=== PATIENT | male | born 1950 | race Caucasian/White ===

== ENCOUNTER 2018-08-15 11:37 | Emergency (ER) | payer MEDICARE, MEDICAID ==
[~2018-08-15] VITALS: Ht 182.9 cm; Wt 65.9 kg
[~2018-08-15 11:37] MED LIST: CLOZ200T12 PO; FOLI1TAB16 PO; HYDR50CA5 PO; PYRI50CA PO; TERB15CR18 TP
[2018-08-15 11:46] VITALS: BP 104/61
[2018-08-15] MEDS ORDERED: HYDROcodone/acetaminophen 5mg/325mg tablet PO ONE (12:30)
[2018-08-15] MEDS ORDERED: HYDR-3965 PO (13:08)
== END 2018-08-15 13:15 | disposition home or self-care (01) ==
LOC: ER 11:38
DX: S70.01XA Contusion of right hip, initial encounter (principal); I10 Essential (primary) hypertension; Z56.0 Unemployment, unspecified; Z79.899 Other long term (current) drug therapy; W19.XXXA Unspecified fall, initial encounter; Y93.02 Activity, running; Y92.89 Other specified places as the place of occurrence of the external cause; Y99.8 Other external cause status
CPT/HCPCS: 73502; 99283